=== PATIENT | female | born 1995 | race Caucasian/White ===

== ENCOUNTER → 2017-09-22 16:36 | Outpatient (CLI) | payer BC, SELFPAY ==
[2017-09-22 18:55] LABS: Chlamydia Trachomatis by PCR Negative (Negative); Neisserai gonorrhoeae by PCR Negative (Negative); Probe Check PASS; Sample Adequacy Control PASS; Specimen Processing Control PASS
[2017-09-25 14:38] LABS: HPV Reflexed? NOT INDICATED
== END ==
PROVIDERS: Visit Provider Obstetrics & Gynecology
DX: N93.0 Postcoital and contact bleeding (principal); Z12.4 Encounter for screening for malignant neoplasm of cervix; N94.19 Other specified dyspareunia
CPT/HCPCS: 87491; 87591; 88175; G0145

== ENCOUNTER → 2021-03-23 15:27 | Outpatient (CLI) | payer BC, MEDICAID, SELFPAY ==
[2021-03-29 00:06] LABS: AFP Value-EIA 78.9 ng/mL (.); Comment Report (.); DIA Value-EIA 363.26 pg/mL (.); DSR (By Age) 1008 (.); DSR (Second Trimester) 3460 (.); Gestat. Age Based On As provided (.); Insulin Dep Diabetes No (.); Maternal Age At EDD 25.5 yr (.)
== END ==
PROVIDERS: PCP Pediatrics; Visit Provider Student in an Organized Health Care Education/Training Program
DX: Z36.1 Encounter for antenatal screening for raised alphafetoprotein level (principal)
CPT/HCPCS: 36415; 82105; 82677; 84702

== ENCOUNTER → 2021-10-23 | Outpatient (CLI) | payer MEDICAID, SELFPAY ==
[2021-10-23 17:02] LABS: Free T3 3.4 pg/mL (2.18-3.98); T4 Free Direct 1.06 ng/dL (0.76-1.46); Thyroid Stim Hormone (TSH) 0.62 uIU/mL (0.358-3.74)
== END | disposition home or self-care (01) ==
LOC: WOBLAB 14:51
PROVIDERS: PCP Pediatrics; Visit Provider Student in an Organized Health Care Education/Training Program
DX: E04.9 Nontoxic goiter, unspecified (principal); Z13.9 Encounter for screening, unspecified
CPT/HCPCS: 36415; 84439; 84443; 84481

== ENCOUNTER → 2022-02-12 | Outpatient (CLI) | payer MEDICAID, SELFPAY ==
[2022-02-12 16:25] LABS: Absolute Lymphocyte Count 2.15 X10^3/uL (0.83-4.51); Absolute Neutrophil Count 8.7 X10^3/uL (2.0-7.7); Basophil# 0.04 X10^3/uL; Basophil% 0.3 % (0-1); Eosinophil# 0.06 X10^3/uL; Eosinophils% 0.5 % (0-5); Hematocrit 35.7 % (37-47); Hemoglobin 12.1 g/dL (12.0-15.0); Lymphocyte # 2.15 X10^3/ul (0.83-4.51); Lymphocyte % 18.2 % (19-41); Mean Corp Hgb Conc 33.9 g/dL (32-36); Mean Corpuscular Hgb 30.6 pg (27.0-32.0); Mean Corpuscular Volume 90.2 fL (81-99); Mean Platelet Vol. 9.3 fl (6.2-12.0); Monocyte# 0.86 X10^3/uL; Monocyte% 7.3 % (0-10); NRBC Flagged by Analyzer 0 % (0-5); Neutrophil # 8.65 X10^3/uL (2.7-7.7); Neutrophil % 73.4 % (47-70); Platelet Count 318 K/mm3 (150-450); RBC Distribution Width CV 12.3 % (11.6-14.6); RBC Distribution Width SD 40.5 fl (35.1-43.9); Red Blood Count 3.96 M/mm3 (4.2-5.4); White Blood Count 11.8 K/mm3 (4.4-11.0)
[2022-02-12 17:22] LABS: HIV - WCH Non-Reactive (Nonreactive); Hepatitis B Surface Antigen Non-Reactive (Nonreactive); Hepatitis C Antibody Non-Reactive (Nonreactive); Rubella IgG Reactive (Nonreactive); Syphilis Antibodies Non-reactive
[2022-02-14 10:27] LABS: V-Zoster IgG (Immunity) 2095 index (Immune >165)
[2022-02-14 21:07] LABS: Chlamydia By Nucleic Acid AMP Negative (Negative)
[2022-02-15 15:34] LABS: Gonococcus By Nucleic Acid AMP Negative (Negative)
[2022-02-19 15:44] LABS: HPV Reflexed? NOT INDICATED
== END | disposition home or self-care (01) ==
LOC: WOBLAB 15:33
PROVIDERS: PCP Pediatrics; Visit Provider Student in an Organized Health Care Education/Training Program
DX: Z34.81 Encounter for supervision of other normal pregnancy, first trimester (principal)
CPT/HCPCS: 36415; 85025; 86703; 86762; 86780; 86787; 86803; 87086; 87088; 87340; 87491; 87591; 88175; G0145

== ENCOUNTER 2022-05-14 09:20 | Outpatient (CLI) | payer MEDICAID, SELFPAY ==
[2022-05-14 09:28] VITALS: BMI 27.3
[2022-05-14 09:33] VITALS: BP 120/77; PULSE 85
[2022-05-14 09:34] VITALS: PULSE 99; O2SAT 98
[2022-05-14 09:35] VITALS: TEMP 36.6; O2SAT 99
[2022-05-14] MEDS: Lactated Ringers 1,000 ML 999 ML IV (10:13)
[2022-05-14] MEDS: Ondansetron 4 MG/2 ML Vial IV (10:18)
[2022-05-14 10:34] LABS: Absolute Lymphocyte Count 1.77 X10^3/uL (0.83-4.51); Absolute Neutrophil Count 10.7 X10^3/uL (2.0-7.7); Basophil# 0.02 X10^3/uL; Basophil% 0.1 % (0-1); Eosinophil# 0.07 X10^3/uL; Eosinophils% 0.5 % (0-5); Hematocrit 34.5 % (37-47); Hemoglobin 11.5 g/dL (12.0-15.0); Lymphocyte # 1.77 X10^3/ul (0.83-4.51); Lymphocyte % 13.2 % (19-41); Mean Corp Hgb Conc 33.3 g/dL (32-36); Mean Corpuscular Hgb 30.2 pg (27.0-32.0); Mean Corpuscular Volume 90.6 fL (81-99); Mean Platelet Vol. 9.5 fl (6.2-12.0); Monocyte# 0.77 X10^3/uL; Monocyte% 5.7 % (0-10); NRBC Flagged by Analyzer 0 % (0-5); Neutrophil # 10.69 X10^3/uL (2.7-7.7); Neutrophil % 79.5 % (47-70); Platelet Count 299 K/mm3 (150-450); RBC Distribution Width CV 12.8 % (11.6-14.6); RBC Distribution Width SD 41.7 fl (35.1-43.9); Red Blood Count 3.81 M/mm3 (4.2-5.4); White Blood Count 13.5 K/mm3 (4.4-11.0)
[2022-05-14 11:21] LABS: Color, Urine Yellow (Yellow); Glucose, Dipstick Normal (Normal); Ketone-Dipstick Negative (Negative); Leukocyte Esterase-Dipstick 100 /ul (Negative); Nitrite-Dipstick Negative (Negative); Occult Blood-Urine 250 /ul (Negative); Protein-Dipstick Negative (Negative); Specific Gravity, Urine 1.015 (1.002-1.030); Urine Bilirubin Dipstick Negative (Negative); Urine Clarity Cloudy (Clear); Urine Urobilinogen Normal (Normal)
--- NOTE | 2022-05-14 11:58 | US_ITS ---
STUDY: FIRST TRIMESTER OBSTETRICAL ULTRASOUND REASON FOR EXAM: Female, 27 years old CERVICAL LENGTH LMP: 12/13/2021. TECHNIQUE: Transvaginal TECHNICAL QUALITY: Adequate. PRIOR ULTRASOUND: None. FINDINGS: The estimated gestation age (EGA) by LMP is 21 weeks, 5 days. The estimated date of delivery (APRIL) by LMP is 09/19/2022. Cephalic presentation. Cervical length measures 3.6 cm. US/Transvaginal w/Preg US IMPRESSION: Cervical length measures 3.6 cm. Electronically Signed: Vu Panchal MD at 12:51 EST ,
[2022-05-14 12:59] VITALS: BP 118/75; PULSE 74
[2022-05-14] MEDS: Lactated Ringers 1,000 ML 200 ML IV (13:06)
--- NOTE | 2022-05-14 13:10 | HP.PCM.OB_ITS ---
History and Physical Date of Admission: 05/14/22 HPI: 27 yo L0 at 21/5w, APRIL 09/19/22 by LMP presenting with cramping. Cramping started this morning. Rating 7 out of 10. Denies leaking of fluid, discharge, vaginal irritation or burning, urinary symptoms, bleeding. Reports movement. Denies headache or vision changes, chest pain or shortness of breath, nausea or vomiting, diarrhea or constipation, fevers or chills. On first assessment this morning. Patient stated that cramping was a 7 out of 10. After IV fluid hydration and stated that it was less consistent but unchanged in pain. On second assessment this afternoon around 1230 patient stated that discomfort was mostly on the right side wrapping around the hip to lower abdomen. complicated by: history of labor/abruption at 30/10w. Patient was on vaginal progesterone, now weekly intramuscular progesterone. Had cervical length screening which was all within normal limits. Status post [facility] consult. There was concern for circumvallate placenta, ruled out at [facility] recently. 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 Dilation and evacuation 2020 Medications: 1. 17 hydroxyprogesterone IM weekly 2. vitamin Allergies: 1. Amoxicillin causes rash Social history: Reports tobacco use, denies alcohol or drug use Family history: Denies Review of system: Negative otherwise stated above Physical exam: BP 118/75, HR 74 Temp 97.8 ?F, oxygen saturation 99% on room air General: Resting in bed, comfortable HEENT: Normal cephalic/atraumatic, PERRLA Cardiorespiratory: No increased effort Abdomen: Soft, nontender, gravid. Did not palpate contraction while in room. No CVA tenderness. Extremities: No edema Sterile speculum exam: Some white vaginal discharge noted, cervix appeared closed, no bleeding. Cervical exam: Closed/thick/high on initial exam and recheck Musculoskeletal: Strength 5 out of 5 throughout extremities Neurologic: Cranial nerves II through XII grossly intact, no focal deficits FHR: 150s [place]: quiet, occasional irritable Assessment/plan: 27 yo L0 at 21/5w, APRIL 09/19/22 by LMP presenting with cramping. complicated by: history of labor/abruption at 21/6w. Patient was on vaginal progesterone, now weekly intramuscular progesterone. Had cervical length screening which was all within normal limits. Status post [facility] consult. There was concern for circumvallate placenta, ruled out at [facility] recently. ?On sterile speculum exam and cervical exam twice. Cervix is closed. ?Gonorrhea/chlamydia testing sent to rule out infectious etiology. ?Urinalysis 100 of leukocyte esterase, no squamous epithelials sent on urinalysis. Questionable UTI. Urine culture will be sent. We will consider treatment empirically. ?Cervical length examined with ultrasound. Measuring 3.5 cm. ?We will continue to IV fluid hydrate. ?CBC within normal limits aside from slight leukocytosis, could be secondary to . No other signs of infection aside from possible UTI. ?Now that patient is reporting right-sided cramping will rule out nephrolithiasis. Reviewed with radiologist. Will order CT scan. ?No evidence at this time of labor. However concerning with contractions in the setting of patient's history. If nephrolithiasis is ruled out, will likely transport to [facility] for further monitoring. This is based on history and no change in pain scale rating. Discussed plan with patient and . They requested and elected for CT [email or web address], reasonable as there has been no cervical change at this time. Reviewed with the patient and her that at this gestational age, corticosteroids are not recommended. Can consider at 22 weeks if planning resuscitation. Will await CT scan at this time and reevaluate after results. ?Did review case with [facility] Dr. Barb Gayle
--- NOTE | 2022-05-14 13:12 | CT_ITS ---
STUDY: CT ABDOMEN AND PELVIS WITHOUT CONTRAST REASON FOR EXAM: Female, 27 years old. Rule out kidney stone. The patient is 22 weeks . RADIATION DOSAGE (If Supplied By Facility): CTDIvol = ( 7.55 ) mGy, DLP = ( 364.19 ) mGycm TECHNIQUE: Transaxial images were obtained from the dome of the diaphragm to the symphysis pubis without oral contrast, and without intravenous contrast. Sagittal and coronal images were reconstructed. Individualized dose optimization techniques were used for this CT. COMPARISON: None. FINDINGS: The visualized lung bases are unremarkable. The visualized portions of the heart are within normal limits. Normal liver. Normal gallbladder and extrahepatic biliary system. Normal spleen. Normal pancreas. Normal bilateral adrenal glands. Mild degree of right hydronephrosis and right hydroureter. No obstructive calculus is seen. Tiny nonobstructive calculus is seen in the lower pole calyx of the left kidney. Normal visualized stomach. Normal small intestine. Normal colon. The appendix is visualized and appears normal. Normal abdominal aorta. Normal inferior vena cava. Normal retroperitoneum. Normal urinary bladder. Gravid uterus. Normal abdominal wall. Normal osseous structures. CT/Abdomen/Pelvis without Cont IMPRESSION: Mild degree of the right hydronephrosis and right hydroureter. No obstructive stone is seen. Punctate calculus in the lower pole calyx of the left kidney. Electronically Signed: Vu Panchal MD at 14:05 EST ,
[2022-05-14 15:29] LABS: Chlamydia Trachomatis by PCR Negative (Negative); Neisserai gonorrhoeae by PCR Negative (Negative); Probe Check PASS; Sample Adequacy Control PASS; Specimen Processing Control PASS
[2022-05-14 15:54] VITALS: BP 123/59; PULSE 82; TEMP 37.3
== END 2022-05-14 17:15 | disposition short-term general hospital (02) ==
LOC: WPOUT 09:27 → WP 09:27
PROVIDERS: Student in an Organized Health Care Education/Training Program; PCP Pediatrics; Referring Provider Obstetrics & Gynecology; Visit Provider Obstetrics & Gynecology
DX: O99.892 Other specified diseases and conditions complicating childbirth (principal); N13.2 Hydronephrosis with renal and ureteral calculous obstruction; Z3A.22 22 weeks gestation of pregnancy
CPT/HCPCS: 96374; 96361; 36415; 59025; 59050; 74176; 76817; 81002; 85025; 86850; 86900; 86901; 87086; 87088; 87491; 87591; 99221; J7120; G0378; J2405

== ENCOUNTER → 2022-06-26 | Outpatient (CLI) | payer OTHER, MEDICAID, SELFPAY ==
[2022-06-26 15:13] LABS: Glucose Challenge Gest 1H 50g 125 mg/dL (70-140)
[2022-06-26 15:31] LABS: Absolute Neutrophil Count 8.1 X10^3/uL (2.0-7.7); Basophil# 0.03 X10^3/uL; Basophil% 0.3 % (0-1); Eosinophil# 0.39 X10^3/uL; Eosinophils% 3.4 % (0-5); Hematocrit 32.1 % (37-47); Hemoglobin 10.4 g/dL (12.0-15.0); Lymphocyte % 17.5 % (19-41); Mean Corp Hgb Conc 32.4 g/dL (32-36); Mean Corpuscular Hgb 29.9 pg (27.0-32.0); Mean Corpuscular Volume 92.2 fL (81-99); Mean Platelet Vol. 9.8 fl (6.2-12.0); Monocyte# 0.84 X10^3/uL; Monocyte% 7.4 % (0-10); NRBC Flagged by Analyzer 0 % (0-5); Neutrophil # 8.08 X10^3/uL (2.7-7.7); Neutrophil % 70.7 % (47-70); Platelet Count 265 K/mm3 (150-450); RBC Distribution Width CV 12.9 % (11.6-14.6); RBC Distribution Width SD 43.1 fl (35.1-43.9); Red Blood Count 3.48 M/mm3 (4.2-5.4); White Blood Count 11.4 K/mm3 (4.4-11.0)
== END | disposition home or self-care (01) ==
LOC: WOBLAB 13:32
PROVIDERS: PCP Pediatrics; Visit Provider Obstetrics & Gynecology
DX: Z34.83 Encounter for supervision of other normal pregnancy, third trimester (principal)
CPT/HCPCS: 36415; 82950; 85025

== ENCOUNTER 2022-08-22 09:50 | Outpatient (CLI) | payer OTHER, MEDICAID, SELFPAY ==
[2022-08-22] MEDS: Betamethasone/Betamethasone 30 MG/5 ML Vial 12 MG IM (10:59)
--- NOTE | 2022-08-23 08:35 | OB.TRI.NOTE ---
HPI - General General Date of Service: 08/22/22 HPI Narrative ANNIE DIAS, is a 27 F who presents for first dose of Celestone PFSH PFS Home Medications PNV 153-FA 400 mcg-om3 35 mg-dha 25 mg-epa 5 mg-fish oil chew tablet ( Gummies) 4 tab PO DAILY 08/22/22 [History Last Taken 08/21/22 19:00] Allergy/AdvReac Type Severity Reaction Status Date / Time amoxicillin Allergy Rash Verified 08/22/22 11:03 Social History Smoking Status: Never smoker Assessment & Plan (1) : PLAN: Patient sent from office for first dose of Celestone with advance cervical dilation. Overall comfortable denies contractions. Celestone today and given instructions for Celestone tomorrow with the verbal order for nursing
== END 2022-08-22 11:09 | disposition home or self-care (01) ==
LOC: WPOUT 10:11 → WP 10:12
PROVIDERS: PCP Pediatrics; Referring Provider Obstetrics & Gynecology; Visit Provider Obstetrics & Gynecology
DX: O34.30 Maternal care for cervical incompetence, unspecified trimester (principal); Z3A.00 Weeks of gestation of pregnancy not specified
CPT/HCPCS: 96372; J0702

== ENCOUNTER → 2022-08-22 | Outpatient (CLI) | payer OTHER, MEDICAID, SELFPAY ==
[2022-08-22 10:08] LABS: Absolute Lymphocyte Count 1.75 X10^3/uL (0.83-4.51); Absolute Neutrophil Count 6.9 X10^3/uL (2.0-7.7); Basophil# 0.02 X10^3/uL; Basophil% 0.2 % (0-1); Hematocrit 35.2 % (37-47); Hemoglobin 11.5 g/dL (12.0-15.0); Lymphocyte # 1.75 X10^3/ul (0.83-4.51); Mean Corp Hgb Conc 32.7 g/dL (32-36); Mean Corpuscular Hgb 29.2 pg (27.0-32.0); Mean Corpuscular Volume 89.3 fL (81-99); Mean Platelet Vol. 10.4 fl (6.2-12.0); Monocyte# 0.89 X10^3/uL; Monocyte% 9.1 % (0-10); NRBC Flagged by Analyzer 0 % (0-5); Neutrophil # 6.91 X10^3/uL (2.7-7.7); Platelet Count 233 K/mm3 (150-450); RBC Distribution Width CV 13.4 % (11.6-14.6); RBC Distribution Width SD 43.7 fl (35.1-43.9); Red Blood Count 3.94 M/mm3 (4.2-5.4); White Blood Count 9.7 K/mm3 (4.4-11.0)
[2022-08-22 10:51] LABS: Syphilis Antibodies Non-reactive
== END | disposition home or self-care (01) ==
PROVIDERS: PCP Pediatrics; Visit Provider Obstetrics & Gynecology
DX: Z34.83 Encounter for supervision of other normal pregnancy, third trimester (principal); Z36.85 Encounter for antenatal screening for Streptococcus B
CPT/HCPCS: 36415; 85025; 86780; 87081

== ENCOUNTER 2022-08-23 08:35 | Outpatient (CLI) | payer OTHER, MEDICAID, SELFPAY ==
[2022-08-23] VITALS (9 sets, daily range): BP systolic 141–168; BP diastolic 72–88; PULSE 72–85; TEMP 36.7; O2SAT 98–99; BMI 29.8
[2022-08-23] MEDS: Betamethasone/Betamethasone 30 MG/5 ML Vial 12 MG IM (09:06)
--- NOTE | 2022-08-23 09:24 | PCM.PN.BLA ---
Progress Note Second dose of celestone for advanced dilation, . History of /previable loss.
== END 2022-08-23 09:12 | disposition home or self-care (01) ==
LOC: WPOUT 08:42 → WP 08:42
PROVIDERS: PCP Pediatrics; Referring Provider Obstetrics & Gynecology; Visit Provider Obstetrics & Gynecology
DX: O34.30 Maternal care for cervical incompetence, unspecified trimester (principal); Z3A.00 Weeks of gestation of pregnancy not specified
CPT/HCPCS: 96372; J0702

== ENCOUNTER 2022-08-24 04:45 | Inpatient (IN) | payer OTHER, MEDICAID, SELFPAY ==
[2022-08-24] VITALS (37 sets, daily range): BP systolic 118–162; BP diastolic 56–85; PULSE 50–87; TEMP 36.7–37.2; O2SAT 97–99; BMI 30.3
[2022-08-24] MEDS: Lactated Ringers 1,000 ML 50 ML IV (05:20)
[2022-08-24 05:46] LABS: Absolute Neutrophil Count 11.7 X10^3/uL (2.0-7.7); Basophil# 0.03 X10^3/uL; Basophil% 0.2 % (0-1); Hematocrit 30.2 % (37-47); Hemoglobin 9.7 g/dL (12.0-15.0); Lymphocyte % 11.8 % (19-41); Mean Corp Hgb Conc 32.1 g/dL (32-36); Mean Corpuscular Hgb 28.8 pg (27.0-32.0); Mean Corpuscular Volume 89.6 fL (81-99); Mean Platelet Vol. 10.7 fl (6.2-12.0); Monocyte# 1.34 X10^3/uL; Monocyte% 8.8 % (0-10); NRBC Flagged by Analyzer 0 % (0-5); Neutrophil # 11.72 X10^3/uL (2.7-7.7); Neutrophil % 77.2 % (47-70); Platelet Count 234 K/mm3 (150-450); RBC Distribution Width CV 13.6 % (11.6-14.6); RBC Distribution Width SD 44.6 fl (35.1-43.9); Red Blood Count 3.37 M/mm3 (4.2-5.4); White Blood Count 15.2 K/mm3 (4.4-11.0)
[2022-08-24 06:49] LABS: Syphilis Antibodies Non-reactive
[2022-08-24 07:08] LABS: Amphetamine Urine VISTA NEGATIVE (<1000 ng/mL); Barbiturate Urine VISTA NEGATIVE (< 200 ng/mL); Benzodiazepine Urine VISTA NEGATIVE (< 200 ng/mL); Cocaine Urine VISTA NEGATIVE (< 300 ng/mL); Ecstacy Urine VISTA NEGATIVE (< 500 ng/mL); Methadone Urine VISTA NEGATIVE (< 300 ng/mL); PCP Urine VISTA NEGATIVE (< 25 ng/mL); THC Urine VISTA NEGATIVE (< 50 ng/mL); Vista UDS pH Range 7
--- NOTE | 2022-08-24 10:07 | HP.PCM.OB_ITS ---
History and Physical Date of Admission: 08/24/22 Chief complaint: Contractions History present illness: 27-year-old G2, P0 at 36 weeks and 2 days with APRIL 09/19/2022 arrives with contractions. States had some leakage of fluid at 1800 on 08/23 but was uncertain at this time. Otherwise denies headache, vision changes, chest pain, shortness of breath, nausea vomit, right upper quadrant pain. Patient states good movement. is complicated by labor, smoker, GBS unknown, BMI 30, history of second trimester loss Obstetric history: G1: Second trimester loss G2: Current Past medical history: None Medications: vitamin Allergies: Amoxicillin Past surgical history: D&C Social history: 1 pack/day smoker, denies alcohol or drug use Family history: Denies history DVT or PE Review of systems: Besides above pertinent positives a full review of systems was performed and found to be negative Physical exam: Vitals: Blood pressure 122/56 pulse 87 temp 98.1 Fahrenheit General: Normal-appearing no acute distress HEENT: Normocephalic/atraumatic no cervical of adenopathy Cardiac/respiratory: No use of accessory muscles, nonlabored breathing Abdomen: Soft, nontender, gravid Extremities: No peripheral edema normal peripheral pulses Psych: Normal affect and remainder nonpressured speech Labs: White blood cell count 15.2 hemoglobin 9.7 hematocrit 38.2 platelets 234. RPR nonreactive. Blood type O+ antibody negative Bedside ultrasound: Cephalic, ALONA subjectively low Assessment and plan: 27-year-old G2, P0 at 36 weeks and 2 days called by nursing with dilation 7 cm could not tell if intact membranes. Given orders for admission and vancomycin with amoxicillin allergy for GBS unknown. Rupture time unknown but believed to be 08/23 at 1800. labor patient status post Celestone on 08/22 and 08/23. Educated patient on labor for mother and/or baby. Patient overall comfortable going natural. Reported by nursing that patient 9 cm dilated at this time but overall very comfortable in bed with no discomfort with contractions. We will continue current management discussed case with valencia sagastume
--- NOTE | 2022-08-24 12:52 | PCM.PN.OB ---
Subjective Subjective Patient resting comfortably, no pain with contractions Objective Data Objective Data Vital Signs: Vital Signs Temp Pulse BP Pulse Ox 98.1 F 61 128/71 H 98 08/24/22 08:55 08/24/22 11:14 08/24/22 11:14 08/24/22 08:54 Weight: 176 lb 9.444 oz Body Mass Index (BMI) 30.3 Intake & Output: Intake and Output for Last 24 Hours 08/22/22 08/23/22 08/24/22 23:59 23:59 23:59 Intake Total 530 / 530 Balance 530 / 530 Lab / Micro Data Result Diagrams: 08/24/22 05:36 Labs: Laboratory Results - last 24 hr 08/24/22 05:36: WBC 15.2 H, RBC 3.37 L, Hgb 9.7 L, Hct 30.2 L, MCV 89.6, MCH 28.8, MCHC 32.1, RDW Std Deviation 44.6 H, RDW Coeff of Juliocesar 13.6, Plt Count 234, MPV 10.7, Immature Gran % (Auto) 2.000 H, Neut % (Auto) 77.2 H, Lymph % (Auto) 11.8 L, [place] % (Auto) 8.8, Eos % (Auto) 0.0, Baso % (Auto) 0.2, Absolute Neuts (auto) 11.7 H, Absolute Lymphs (auto) 1.80, Nucleated RBC % 0 08/24/22 05:36: Blood Type O POSITIVE, Antibody Screen NEGATIVE 08/24/22 05:36: Syphilis Total Ab Non-reactive 08/24/22 06:45: Urine Opiates Screen NEGATIVE, Urine Methadone Screen NEGATIVE, Ur Barbiturates Screen NEGATIVE, Ur Phencyclidine Scrn NEGATIVE, Ur Amphetamines Screen NEGATIVE, MDMA (Ecstasy) Screen NEGATIVE, U Benzodiazepines Scrn NEGATIVE, Urine Cocaine Screen NEGATIVE, U Cannabinoids Screen NEGATIVE, Ur Drug Screen Comment Physical Exam Const alert, oriented x3, no apparent distress, average body habitus, healthy appearing and well nourished HEENT normocephalic and moist oral mucous membranes Eyes PERRL Resp normal respiratory effort, no retractions and no use of accessory muscles Narrative: Cervical exam: 7/80/0. Palpable hair on scalp Extremity normal to inspection, full ROM and no clubbing, cyanosis or edema Neuro moves all extremities and no focal motor deficits Psych mental status grossly normal, affect normal, speech normal and activity/motor behavior normal Assessment & Plan (1) : PLAN: Patient seen and examined. Reported by nursing that cervical change 9 and half centimeters. Repeat exam per nursing unchanged. Patient overall comfortable with contractions. Patient examined by me with cervical exam as above. So overall no changes since arrival per nursing check previously. But patient with no palpable amniotic sac along with palpable hair on scalp. Along with bedside ultrasound with oligohydramnios/anhydramnios compared to normal ALONA earlier this week. With history of large amount of fluid leaking from vagina on 08/23 at 1800 and exam with bedside ultrasound oligo/anhydramnios no need for further evaluation via ROM test. Diagnosed with P PROM. We will start Pitocin to augment labor. Educated patient on need to augment labor with P PROM. Patient stated understanding. Start Pitocin
[2022-08-24] MEDS: Oxytocin 15 Units/NS 250ml 15 UNITS/250 ML IV.SOLN 2 UNITS IV (13:08)
[2022-08-24] MEDS: Methylergonovine 0.2 MG/ML Ampul IM (18:34)
[2022-08-24] MEDS: Carboprost Tromethamine 250 MCG/ML Ampul IM (18:40)
[2022-08-24] MEDS: Lidocaine 1% (20 ml mdv) 20 ML Vial INFILT (18:43)
--- NOTE | 2022-08-24 18:57 | EX.PCM.OBRPT ---
Vaginal Delivery Findings Description of Procedure: Called by nursing for delivery. Arrived to room. Normal spontaneous vaginal delivery of a viable female infant, vertex KHADAR. Head and shoulders delivered with ease. Cord clamped and cut. Baby handed off to patient. Placenta delivered via cord traction and fundal massage. IV oxytocin initiated per protocol, prophylactic Methergine IM with short second stage of labor given. Hemabate IM given with slight atony. Uterus firm with massage after Hemabate. Bilateral labial lacerations noted and repaired with 2-0 Vicryl suture. Good hemostasis noted. EBL 400 cc Apgars 9/10
[2022-08-24] MEDS: Oxytocin 15 Units/NS 250ml 15 UNITS/250 ML IV.SOLN 83 UNITS IV (19:02)
[2022-08-24] MEDS: Ondansetron 4 MG/2 ML Vial IV (19:31)
[2022-08-24] MEDS: Ibuprofen 600 MG Tablet PO (19:31)
[2022-08-24] MEDS: Acetaminophen 500 MG Tablet 1000 MG PO (20:47)
[2022-08-24] MEDS: 0.9% Saline Lock 10 ML Syringe IV (22:16)
[2022-08-25] VITALS: BP 142/83; PULSE 55; RESP 16; TEMP 36.7
[2022-08-25 04:19] VITALS: BP 124/68; PULSE 60; RESP 15; TEMP 37.1; O2SAT 96
[2022-08-25] MEDS: Acetaminophen 500 MG Tablet 1000 MG PO ×2 (06:07→17:33)
[2022-08-25 08:29] VITALS: BP 125/76; PULSE 67; RESP 15; TEMP 37.1; O2SAT 97
[2022-08-25] MEDS: Ibuprofen 600 MG Tablet PO ×2 (08:39→20:57)
[2022-08-25] MEDS: Prenatal Vits Tablet 1 TABLET PO (10:59)
[2022-08-25 12:06] VITALS: BP 120/73; PULSE 60; RESP 15; TEMP 36.7; O2SAT 96
--- NOTE | 2022-08-25 12:10 | PCM.PN.OB ---
Subjective Subjective No overnight complaints. Pain well controlled. Denies headache, vision change, chest pain, shortness of breath, nausea vomit, no quadrant pain. Objective Data Objective Data Vital Signs: Vital Signs Temp Pulse Resp BP Pulse Ox O2 Del Method 98.1 F 60 15 120/73 96 Room Air 08/25/22 12:06 08/25/22 12:06 08/25/22 12:06 08/25/22 12:06 08/25/22 12:06 08/25/22 12:06 Oxygen Delivery Method Room Air Weight: 176 lb 9.444 oz Body Mass Index (BMI) 30.3 Intake & Output: Intake and Output for Last 24 Hours 08/23/22 08/24/22 08/25/22 23:59 23:59 23:59 Intake Total 2211.67 / 2211.67 Output Total 600 / 600 Balance 1611.67 / 1611.67 Lab / Micro Data Result Diagrams: 08/24/22 05:36 Physical Exam Const alert, oriented x3, no apparent distress, average body habitus, healthy appearing and well nourished HEENT normocephalic and moist oral mucous membranes Eyes PERRL Neck full ROM Resp normal respiratory effort, no retractions and no use of accessory muscles GI GI Narrative: Soft, nontender, uterus firm and below umbilicus Neuro moves all extremities and no focal motor deficits Psych mental status grossly normal, affect normal, speech normal and activity/motor behavior normal Assessment & Plan (1) Vaginal delivery: PLAN: day 1. Breast-feeding. Pain well controlled. Patient initially immediately after delivery with elevated BPs, no BPs elevated during her labor course, was given IM Methergine. Likely secondary to Methergine. This morning and today BPs within normal limits and patient asymptomatic. Patient had no issues with blood pressures throughout . Likely secondary to Methergine side effect. We will continue to monitor until tomorrow morning
[2022-08-25 17:20] VITALS: BP 129/74; PULSE 69; RESP 15; TEMP 36.9; O2SAT 97
[2022-08-25 20:16] VITALS: BP 129/64; PULSE 70; RESP 16; TEMP 36.9; O2SAT 98
[2022-08-26] MEDS: Acetaminophen 500 MG Tablet 1000 MG PO (00:50)
[2022-08-26 01:16] VITALS: BP 130/70; PULSE 61; RESP 16; TEMP 36.7
--- NOTE | 2022-08-26 07:21 | PCM.DC.BLA ---
Discharge Summary Date of Admission: 08/24/22 Date of Discharge: 08/26/22 Summary: Patient arrived on 08/24/2022 with contractions and P PROM. Subsequently delivered vaginally on 08/24/2022 at 36 weeks. Routine recovery. Discharge home 08/26/2022 Meaningful Use Info Meaningful Use Diagnoses (Choose all that apply): None applicable Discharge Plan Admission Admit Date/Time: 08/24/22 04:45 Primary Reason for Your Visit: P PROM Attending Provider: Dom Sánchez Primary Care Provider: Neptali Hull Instructions Additional Instructions / Restrictions: Regular diet. Weightbearing as tolerated. Okay to shower. No tub baths for 2 weeks. No intercourse for 4 to 6 weeks. Call if fevers, chills, chest pain, shortness of breath, headache, visual changes. Follow-up 4 to 6 weeks Discharge Orders/Prescriptions Prescriptions: No Action Gummies 400 mcg-35 mg- 25 mg-5 mg Tablet,Chewable 4 tab PO DAILY Referrals / Follow Up: Neptali Hull MD [Primary Care Provider] - Disposition Disposition (needs filled in before D/C Order can be placed): Home, Self Care
--- NOTE | 2022-08-26 07:22 | PCM.PN.OB ---
Subjective Subjective No overnight complaints. Denies headache, vision change, chest pain, shortness of breath, nausea vomit, right upper quadrant pain Objective Data Objective Data Vital Signs: Vital Signs Temp Pulse Resp BP Pulse Ox O2 Del Method 98.0 F 61 16 130/70 H 98 Room Air 08/26/22 01:16 08/26/22 01:16 08/26/22 01:16 08/26/22 01:16 08/25/22 20:16 08/25/22 20:16 Oxygen Delivery Method Room Air Weight: 176 lb 9.444 oz Body Mass Index (BMI) 30.3 Intake & Output: Intake and Output for Last 24 Hours 08/24/22 08/25/22 08/26/22 23:59 23:59 23:59 Intake Total 2211.67 / 2211.67 Output Total 600 / 600 Balance 1611.67 / 1611.67 Lab / Micro Data Result Diagrams: 08/24/22 05:36 Physical Exam Const alert, oriented x3, no apparent distress, average body habitus, healthy appearing and well nourished HEENT normocephalic and moist oral mucous membranes Eyes PERRL Neck full ROM Resp normal respiratory effort, no retractions and no use of accessory muscles GI GI Narrative: Soft, nontender, uterus firm and below umbilicus Extremity normal to inspection, full ROM and no clubbing, cyanosis or edema Neuro moves all extremities and no focal motor deficits Psych mental status grossly normal, affect normal, speech normal and activity/motor behavior normal Assessment & Plan (1) Vaginal delivery: PLAN: day 2. Breast-feeding. Pain well controlled. Okay to discharge home today if okay with head inspector and center marker
[2022-08-26 08:18] VITALS: BP 125/98; PULSE 58; RESP 16; TEMP 36.6
[2022-08-26] MEDS: Prenatal Vits Tablet 1 TABLET PO (10:16)
== END 2022-08-26 12:40 | disposition home or self-care (01) | DRG 807 ==
PROVIDERS: Admitting Provider Obstetrics & Gynecology; PCP Pediatrics; Visit Provider Obstetrics & Gynecology
DX: O60.14X0 Preterm labor third trimester with preterm delivery third trimester, not applicable or unspecified (principal); Z37.0 Single live birth; F17.200 Nicotine dependence, unspecified, uncomplicated; O70.0 First degree perineal laceration during delivery; O62.2 Other uterine inertia; O99.334 Smoking (tobacco) complicating childbirth; O62.3 Precipitate labor; Z3A.36 36 weeks gestation of pregnancy
CPT/HCPCS: 59025; 59050; 76815; 80307; 85025; 86780; 86850; 86900; 86901; 99221; J7040; J7120; A4216; G0378; J2405